=== PATIENT | male | born 1940 | race Caucasian/White ===

== ENCOUNTER → 2016-06-09 | Outpatient (CLI) | payer MEDICARE, BC ==
[~2016-06-09] MED LIST: ARTIFICIAL TEAR15 M1 PO; ASA CHILDREN'S81 MG PO; B COMPLEX1 EACH PO; CALCIUM500 MG PO; COLACE-DPS100 MG PO; LIPITOR DPS20 MG PO; LUTEIN6 M1 PO; METOPROLOL TART25 MG PO; NORCO 5-325 TA1 EACH PO; NORVASC DPS10 MG PO; OMEGA-3 DPS1000 MG PO; PROSCAR DPS5 MG PO; PROTONIX40 MG PO; THERA1 EACH PO; TUMS DPS500 MG PO; UROXATRAL10 MG PO; ZITHROMAX500 MG PO
== END | disposition home or self-care (01) ==
DX: C64.9 Malignant neoplasm of unspecified kidney, except renal pelvis (principal); Z90.5 Acquired absence of kidney; N28.89 Other specified disorders of kidney and ureter